=== PATIENT | female | born 1935 | race Caucasian/White ===

== ENCOUNTER → 2017-12-10 | Outpatient (CLI) | payer MEDICARE, OTHER ==
[~2017-12-10] MED LIST: LEVO100T PO; LOSA100T7 PO; METH1TAB21 PO
[2017-12-10 14:59] LABS: BASOPHILS # (AUTO) 0.04 x10^3/uL (0-0.1); BASOPHILS % (AUTO) 1 % (0-1); EOSINOPHILS % (AUTO) 2 % (1-7); HCT (SEDRATE) 41.3 % (34.6-47.8); LYMPHOCYTES # (AUTO) 1.56 x10^3/uL (1-3.4); LYMPHOCYTES % (AUTO) 29 % (22-44); MD NO; MEAN CORPUSCULAR HEMOGLOBIN 31.4 pg (27.0-34.8); MEAN CORPUSCULAR HGB CONC 33.2 g/dL (32.4-35.8); MEAN CORPUSCULAR VOLUME 94.4 fL (80-100); MEAN PLATELET VOLUME 8.4 fL (7.4-10.4); MONOCYTES # (AUTO) 0.43 x10^3/uL (0.2-0.8); MONOCYTES % (AUTO) 8 % (2-9); NEUTROPHILS # (AUTO) 3.34 x10^3/uL (1.8-6.8); NEUTROPHILS % (AUTO) 61 % (42-75); PLATELET COUNT 203 x10^3/uL (130-400); RED BLOOD COUNT 4.36 x10^6/uL (3.82-5.3); RED CELL DISTRIBUTION WIDTH 13.9 % (9.6-15.2)
[2017-12-10 15:06] LABS: MICROSCOPIC AUTO
[2017-12-10 15:07] LABS: CULTURE INDICATED? YES
[2017-12-10 15:12] LABS: ALANINE AMINOTRANSFERASE 13 U/L (12-78); ALBUMIN 3.7 g/dL (3.4-5.0); ANION GAP 5 mmol/L (5-15); CHLORIDE 106 mmol/L (98-107)
[2017-12-10 15:15] LABS: ALKALINE PHOSPHATASE 125 U/L (45-117); BILIRUBIN,TOTAL 0.4 mg/dL (0.2-1.0); CREATININE 1.19 mg/dL (0.55-1.02); TOTAL PROTEIN 7.5 g/dL (6.4-8.2)
[2017-12-10 15:31] LABS: INTERNATIONAL NORMALIZED RATIO 0.98 (0.93-1.1); PROTHROMBIN TIME 10.1 Seconds (9.6-11.5)
== END | disposition home or self-care (01) ==
LOC: STAR 13:47
PROVIDERS: ATTEND Orthopaedic Surgery Orthopaedic Surgery of the Spine
DX: Z01.818 Encounter for other preprocedural examination (principal); M41.86 Other forms of scoliosis, lumbar region; M43.16 Spondylolisthesis, lumbar region; J84.10 Pulmonary fibrosis, unspecified
CPT/HCPCS: 36415; 71046; 80053; 81001; 85025; 85610; 85651; 85730; 87086; 93005

== ENCOUNTER 2017-12-19 12:13 | Inpatient (IN) | payer MEDICARE, OTHER ==
[~2017-12-19] VITALS: Ht 165.1 cm; Wt 96.3 kg
[~2017-12-19 12:13] MED LIST changes: +BACITRACIN 50,000 UNIT ONE; +BUPIVACAINE/PF-EPI 0.5% 1:200K ONE; +PROPOFOL 50 ML ONE; +TRANEXAMIC ACID 100 MG/ML, 10ML ONE; +VANCOMYCIN 1,000 MG ONE
[2017-12-19] MEDS ORDERED: LACTATED RINGERS 1,000 ML IV SCH (12:40)
[2017-12-19 12:44] VITALS: BP 133/74
[2017-12-19] MEDS ORDERED: FENTANYL PF 250 MCG/5ML ONE (12:56)
[2017-12-19] MEDS ORDERED: VANCOMYCIN PMX 1GM/200ML 200 ML IV ONE (13:00)
[2017-12-19] MEDS ORDERED: OxyconTIN ER 10 MG TAB.ER PO ONE (14:30)
[2017-12-19] MEDS ORDERED: ACETAMINOPHEN 500 MG TABLET PO ONE (14:30)
[2017-12-19] MEDS ORDERED: GABAPENTIN 300 MG CAPSULE PO ONE (14:30)
[2017-12-19] MEDS ORDERED: FAMOTIDINE 20 MG TABLET PO ONE (14:30)
[2017-12-19] MEDS ORDERED: PROPOFOL 100 ML ONE (14:35)
[2017-12-19] MEDS ORDERED: CEFAZOLIN 1,000 MG ONE ×2 (14:58)
[2017-12-19] MEDS ORDERED: THROMBIN SPRAY 20,000 UNIT SPRAY TP ONE (15:31)
[2017-12-19] MEDS ORDERED: BUPIVACAINE/PF-EPI 0.5% 1:200K INFIL ONE (15:40)
[2017-12-19] MEDS ORDERED: BACITRACIN 50,000 UNIT IRRIG ONE (15:41)
[2017-12-19] MEDS ORDERED: THROMBIN 20,000 UNIT VIAL TP ONE (15:42)
[2017-12-19] MEDS ORDERED: VANCOMYCIN 1,000 MG IM ONE (15:42)
[2017-12-19] MEDS ORDERED: ONDANSETRON 2MG/ML, 2ML ONE (17:52)
[2017-12-19] MEDS ORDERED: PROMETHAZINE 25 MG/ML, 1ML IV PRN (18:00)
[2017-12-19] MEDS ORDERED: HYDROmorphone 1 MG/ML, 1ML IV PRN (18:00)
[2017-12-19] MEDS ORDERED: hydrALAzine 20 MG/ML, 1ML IV PRN (18:00)
[2017-12-19] MEDS ORDERED: ONDANSETRON 2MG/ML, 2ML IV PRN ×2 (18:00→22:00)
[2017-12-19] MEDS ORDERED: LABETALOL 5MG/ML, 20ML IV PRN ×2 (18:00→22:00)
[2017-12-19] MEDS ORDERED: OXYcodone 5 MG/5 ML ORAL.SOL UDC PO PRN (18:00)
[2017-12-19] MEDS ORDERED: OXYcodone 5 MG/5 ML ORAL.SOL UDC ONE (18:59)
[2017-12-19] MEDS ORDERED: FENTANYL PF 100 MCG/2ML ONE (18:59)
[2017-12-19] MEDS ORDERED: HYDROmorphone 2 MG/ML, 1ML ONE (18:59)
[2017-12-19] MEDS: FENTANYL PF 100 MCG/2ML IV PRN ×3 (19:11→19:29)
[2017-12-19 20:54] VITALS: BP 130/78
[2017-12-19] MEDS ORDERED: ZOLPIDEM 5MG TABLET PO PRN (21:00)
[2017-12-19] MEDS ORDERED: KETOROLAC 30 MG/1 ML IV ONE (22:00)
[2017-12-19] MEDS ORDERED: DIAZEPAM 5 MG TABLET PO PRN (22:00)
[2017-12-19] MEDS ORDERED: DIAZEPAM 5 MG/ML, 2ML IV PRN (22:00)
[2017-12-19] MEDS ORDERED: PROMETHAZINE 25 MG/ML, 1ML IM PRN (22:00)
[2017-12-19] MEDS ORDERED: ACETAMINOPHEN 325 MG TABLET PO PRN (22:00)
[2017-12-19] MEDS ORDERED: BISACODYL 10 MG SUPP PR PRN (22:00)
[2017-12-19] MEDS ORDERED: MAGNESIUM HYDROXIDE 8%, 30ML UDC PO PRN (22:00)
[2017-12-19] MEDS ORDERED: KETOROLAC 30 MG/1 ML IM PRN (22:00)
[2017-12-19] MEDS ORDERED: DIPHENHYDRAMINE 50 MG CAPSULE PO PRN (22:00)
[2017-12-19] MEDS ORDERED: VANCOMYCIN PER PHARMACY MC PRN (22:00)
[2017-12-19] MEDS ORDERED: DIPHENHYDRAMINE 50 MG/ML, 1ML IVPush PRN (22:00)
[2017-12-19] MEDS ORDERED: SODIUM CHLORIDE 0.9% 1,000 ML IV SCH (22:00)
[2017-12-19] MEDS ORDERED: morphine SULFATE 10 MG/ML, 1ML IV PRN (22:00)
[2017-12-19] MEDS ORDERED: DIPHENHYDRAMINE 50 MG/ML, 1ML IM PRN (22:00)
[2017-12-19] MEDS ORDERED: LORazepam 1MG TABLET PO PRN (22:00)
[2017-12-19] MEDS ORDERED: PHARMACOKINETIC CONSULTATION MC ONE (22:30)
[2017-12-19] MEDS ORDERED: PHARMACOKINETIC MONITORING MC PRN (22:30)
[2017-12-19] MEDS ORDERED: VANCOMYCIN 1,400 MG in SODIUM CHLORIDE 0.9% 250 ML IV SCH (22:30)
[2017-12-19] MEDS: D5%-0.9% NACL+KCL 20MEQ 1,000 ML IV SCH (23:40)
[2017-12-20 00:38] VITALS: BP 130/71
[2017-12-20] MEDS: DEXAMETHASONE 4 MG/ML, 1ML IVPush PRN ×2 (00:51→20:54)
[2017-12-20] MEDS ORDERED: KETOROLAC 30 MG/1 ML IV PRN ×2 (04:11→10:11)
[2017-12-20 05:48] LABS: BASOPHILS % (AUTO) 0 % (0-1); EOSINOPHILS % (AUTO) 0 % (1-7); LYMPHOCYTES # (AUTO) 0.59 x10^3/uL (1-3.4); LYMPHOCYTES % (AUTO) 6 % (22-44); MD NO; MEAN CORPUSCULAR HEMOGLOBIN 32.2 pg (27.0-34.8); MEAN CORPUSCULAR HGB CONC 33.8 g/dL (32.4-35.8); MEAN CORPUSCULAR VOLUME 95.2 fL (80-100); MEAN PLATELET VOLUME 8.8 fL (7.4-10.4); MONOCYTES # (AUTO) 0.35 x10^3/uL (0.2-0.8); MONOCYTES % (AUTO) 4 % (2-9); NEUTROPHILS # (AUTO) 8.67 x10^3/uL (1.8-6.8); NEUTROPHILS % (AUTO) 90 % (42-75); PLATELET COUNT 180 x10^3/uL (130-400); RED BLOOD COUNT 3.63 x10^6/uL (3.82-5.3); RED CELL DISTRIBUTION WIDTH 13.5 % (9.6-15.2)
[2017-12-20 05:49] LABS: CREATININE 0.99 mg/dL (0.55-1.02)
[2017-12-20 07:06] VITALS: BP 105/60
[2017-12-20] MEDS: LEVOTHYROXINE 100 MCG TABLET PO SCH (07:33)
[2017-12-20] MEDS: OXYcodone IR 5MG TABLET PO PRN ×3 (07:34→22:55)
[2017-12-20] MEDS: D5%-0.9% NACL+KCL 20MEQ 1,000 ML IV SCH ×2 (08:00→17:52)
[2017-12-20] MEDS: LOSARTAN 50MG TABLET PO SCH (09:00)
[2017-12-20] MEDS: METHENAMINE HIPPURATE 1 GM TABLET PO SCH ×2 (10:04→20:54)
[2017-12-20] MEDS: ASCORBIC ACID 500 MG TABLET PO SCH ×2 (10:04→20:54)
[2017-12-20] MEDS: SENNA/DOCUSATE TABLET PO SCH (10:04)
[2017-12-20 13:26] VITALS: BP 106/67
[2017-12-20 19:00] VITALS: BP 136/74
[2017-12-20] MEDS ORDERED: VANCOMYCIN 1,400 MG in SODIUM CHLORIDE 0.9% 250 ML IV SCH (23:00)
[2017-12-21 01:50] VITALS: BP 125/68
[2017-12-21] MEDS: D5%-0.9% NACL+KCL 20MEQ 1,000 ML IV SCH ×2 (04:00→14:00)
[2017-12-21 05:34] LABS: BASOPHILS # (AUTO) 0.02 x10^3/uL (0-0.1); BASOPHILS % (AUTO) 0 % (0-1); EOSINOPHILS % (AUTO) 0 % (1-7); LYMPHOCYTES # (AUTO) 0.86 x10^3/uL (1-3.4); LYMPHOCYTES % (AUTO) 9 % (22-44); MD NO; MEAN CORPUSCULAR HEMOGLOBIN 32.6 pg (27.0-34.8); MEAN CORPUSCULAR VOLUME 95.8 fL (80-100); MEAN PLATELET VOLUME 8.4 fL (7.4-10.4); MONOCYTES # (AUTO) 0.77 x10^3/uL (0.2-0.8); MONOCYTES % (AUTO) 8 % (2-9); NEUTROPHILS # (AUTO) 8.47 x10^3/uL (1.8-6.8); NEUTROPHILS % (AUTO) 84 % (42-75); PLATELET COUNT 169 x10^3/uL (130-400); RED BLOOD COUNT 3.49 x10^6/uL (3.82-5.3); RED CELL DISTRIBUTION WIDTH 14.1 % (9.6-15.2)
[2017-12-21] MEDS: OXYcodone IR 5MG TABLET PO PRN ×6 (05:53→22:08)
[2017-12-21] MEDS: LEVOTHYROXINE 100 MCG TABLET PO SCH (05:53)
[2017-12-21 07:20] VITALS: BP 91/49
[2017-12-21] MEDS: ASCORBIC ACID 500 MG TABLET PO SCH ×2 (08:38→20:39)
[2017-12-21] MEDS: SENNA/DOCUSATE TABLET PO SCH (08:38)
[2017-12-21] MEDS: METHENAMINE HIPPURATE 1 GM TABLET PO SCH ×2 (08:38→20:39)
[2017-12-21] MEDS: LOSARTAN 50MG TABLET PO SCH (08:40)
[2017-12-21 08:43] VITALS: BP 100/63
[2017-12-21 12:59] VITALS: BP 112/41
[2017-12-21 20:16] VITALS: BP 114/70
[2017-12-22 02:24] VITALS: BP 125/71
[2017-12-22] MEDS: OXYcodone IR 5MG TABLET PO PRN ×6 (04:23→21:28)
[2017-12-22 05:21] LABS: BASOPHILS # (AUTO) 0.07 x10^3/uL (0-0.1); BASOPHILS % (AUTO) 1 % (0-1); EOSINOPHILS # (AUTO) 0.09 x10^3/uL (0-0.4); EOSINOPHILS % (AUTO) 1 % (1-7); LYMPHOCYTES # (AUTO) 1.76 x10^3/uL (1-3.4); LYMPHOCYTES % (AUTO) 19 % (22-44); MD NO; MEAN CORPUSCULAR HEMOGLOBIN 32.6 pg (27.0-34.8); MEAN CORPUSCULAR HGB CONC 34.2 g/dL (32.4-35.8); MEAN CORPUSCULAR VOLUME 95.4 fL (80-100); MEAN PLATELET VOLUME 8.7 fL (7.4-10.4); MONOCYTES # (AUTO) 1.02 x10^3/uL (0.2-0.8); MONOCYTES % (AUTO) 11 % (2-9); NEUTROPHILS # (AUTO) 6.21 x10^3/uL (1.8-6.8); NEUTROPHILS % (AUTO) 68 % (42-75); PLATELET COUNT 159 x10^3/uL (130-400)
[2017-12-22] MEDS: LEVOTHYROXINE 100 MCG TABLET PO SCH (06:01)
[2017-12-22 06:44] VITALS: BP 91/54
[2017-12-22] MEDS ORDERED: ACETAMINOPHEN 500 MG TABLET ONE (08:11)
[2017-12-22 08:27] VITALS: BP 122/70
[2017-12-22] MEDS: SENNA/DOCUSATE TABLET PO SCH (08:29)
[2017-12-22] MEDS: LOSARTAN 50MG TABLET PO SCH (08:29)
[2017-12-22] MEDS: METHENAMINE HIPPURATE 1 GM TABLET PO SCH ×2 (08:29→21:28)
[2017-12-22] MEDS: ASCORBIC ACID 500 MG TABLET PO SCH ×2 (08:30→21:33)
[2017-12-22] MEDS: DEXAMETHASONE 4 MG/ML, 1ML IVPush PRN (08:49)
[2017-12-22] MEDS ORDERED: OXYcodone 5 MG/5 ML ORAL.SOL UDC ONE (08:53)
[2017-12-22 12:11] VITALS: BP 98/60
[2017-12-22] MEDS: POLYETHYLENE GLYCOL 17 GM PACKET PO PRN (17:26)
[2017-12-22 20:19] VITALS: BP 101/63
[2017-12-23] MEDS: OXYcodone IR 5MG TABLET PO PRN ×3 (02:54→15:43)
[2017-12-23 04:30] VITALS: BP 112/67
[2017-12-23 04:55] LABS: BASOPHILS # (AUTO) 0.01 x10^3/uL (0-0.1); BASOPHILS % (AUTO) 0 % (0-1); EOSINOPHILS # (AUTO) 0.04 x10^3/uL (0-0.4); EOSINOPHILS % (AUTO) 1 % (1-7); LYMPHOCYTES # (AUTO) 1.09 x10^3/uL (1-3.4); LYMPHOCYTES % (AUTO) 13 % (22-44); MD NO; MEAN CORPUSCULAR HEMOGLOBIN 32.5 pg (27.0-34.8); MEAN CORPUSCULAR HGB CONC 34.1 g/dL (32.4-35.8); MEAN CORPUSCULAR VOLUME 95.4 fL (80-100); MEAN PLATELET VOLUME 8.5 fL (7.4-10.4); MONOCYTES # (AUTO) 0.76 x10^3/uL (0.2-0.8); MONOCYTES % (AUTO) 9 % (2-9); NEUTROPHILS # (AUTO) 6.81 x10^3/uL (1.8-6.8); NEUTROPHILS % (AUTO) 78 % (42-75); PLATELET COUNT 179 x10^3/uL (130-400); RED BLOOD COUNT 3.21 x10^6/uL (3.82-5.3); RED CELL DISTRIBUTION WIDTH 13.8 % (9.6-15.2)
[2017-12-23] MEDS: LEVOTHYROXINE 100 MCG TABLET PO SCH (05:06)
[2017-12-23 06:28] VITALS: BP 135/77
[2017-12-23] MEDS: SENNA/DOCUSATE TABLET PO SCH (10:29)
[2017-12-23] MEDS: POLYETHYLENE GLYCOL 17 GM PACKET PO PRN (10:29)
[2017-12-23] MEDS: ASCORBIC ACID 500 MG TABLET PO SCH (10:30)
[2017-12-23] MEDS: LOSARTAN 50MG TABLET PO SCH (10:30)
[2017-12-23] MEDS: METHENAMINE HIPPURATE 1 GM TABLET PO SCH (10:30)
[2017-12-23] MEDS ORDERED: MAGNESIUM CITRATE 300ML ORAL SOL ONE (12:43)
[2017-12-23 12:53] VITALS: BP 119/69
[2017-12-23] MEDS ORDERED: MAGNESIUM CITRATE 300ML ORAL SOL PO PRN (13:00)
[2017-12-23] MEDS ORDERED: OXYC5CAP2 PO (17:07)
[2017-12-23] MEDS ORDERED: CEPH-368 PO (17:08)
[2017-12-23] MEDS ORDERED: METH500T97 PO (17:08)
== END 2017-12-23 17:54 | disposition home health service (06) | DRG 460 ==
LOC: ORIP 12:13 → 4NOR 20:00
PROVIDERS: ADMIT Orthopaedic Surgery Orthopaedic Surgery of the Spine; ATTEND Orthopaedic Surgery Orthopaedic Surgery of the Spine
PROC: 0SG1071 Fusion of 2 or more Lumbar Vertebral Joints with Autologous Tissue Substitute, Posterior Approach, Posterior Column, Open Approach (ICD-10-PCS; 2017-12-19)
PROC: 0SP004Z Removal of Internal Fixation Device from Lumbar Vertebral Joint, Open Approach (ICD-10-PCS; 2017-12-19)
PROC: 07DR3ZZ Extraction of Iliac Bone Marrow, Percutaneous Approach (ICD-10-PCS; 2017-12-19)
PROC: 4A11X4G Monitoring of Peripheral Nervous Electrical Activity, Intraoperative, External Approach (ICD-10-PCS; 2017-12-19)
PROC: 0QU00JZ Supplement Lumbar Vertebra with Synthetic Substitute, Open Approach (ICD-10-PCS; 2017-12-19)
PROC: 0SG3071 Fusion of Lumbosacral Joint with Autologous Tissue Substitute, Posterior Approach, Posterior Column, Open Approach (ICD-10-PCS; principal; 2017-12-19 14:30)
DX: T84.84XA Pain due to internal orthopedic prosthetic devices, implants and grafts, initial encounter (principal); M43.16 Spondylolisthesis, lumbar region; M47.9 Spondylosis, unspecified; I10 Essential (primary) hypertension; E03.9 Hypothyroidism, unspecified; M51.36 Other intervertebral disc degeneration, lumbar region; M41.86 Other forms of scoliosis, lumbar region; Y83.1 Surgical operation with implant of artificial internal device as the cause of abnormal reaction of the patient, or of later complication, without mention of misadventure at the time of the procedure; K59.00 Constipation, unspecified; Z90.49 Acquired absence of other specified parts of digestive tract; Z90.710 Acquired absence of both cervix and uterus; Z98.1 Arthrodesis status
CPT/HCPCS: 36415; 72100; 82565; 84520; 85025; 86850; 86900; C1713; G0378; J0690; J1100; J1885; J2270; J2405; J2704; J3010; J3370; C1760; C1762; C1763; C9362; J3480; J7050

== ENCOUNTER → 2018-05-18 | Outpatient (CLI) | payer MEDICARE, OTHER ==
[~2018-05-18] MED LIST changes: +AREDS II PO; +ASCO-96 PO; -BACITRACIN 50,000 UNIT ONE; -BUPIVACAINE/PF-EPI 0.5% 1:200K ONE; +CEPH-368 PO; +CRAN200C2 PO; +FEXO180T72 PO; +FLUT16SP NS; +LOSA100T14 PO; -LOSA100T7 PO; +METH500T97 PO; +MIRA25TA PO; +OXYC5CAP2 PO; -PROPOFOL 50 ML ONE; -TRANEXAMIC ACID 100 MG/ML, 10ML ONE; -VANCOMYCIN 1,000 MG ONE; +[UNRECOGNIZED DRUG - OTHER] PO; +[UNRECOGNIZED DRUG - OTHER] PO; +[UNRECOGNIZED DRUG - REMARK] PO
[2018-05-18 11:29] LABS: MICROSCOPIC AUTO
[2018-05-18 11:36] LABS: CULTURE INDICATED? YES
[2018-05-18 11:42] LABS: BASOPHILS # (AUTO) 0.03 x10^3/uL (0-0.1); BASOPHILS % (AUTO) 1 % (0-1); EOSINOPHILS # (AUTO) 0.03 x10^3/uL (0-0.4); EOSINOPHILS % (AUTO) 0 % (1-7); LYMPHOCYTES # (AUTO) 1.41 x10^3/uL (1-3.4); LYMPHOCYTES % (AUTO) 20 % (22-44); MD NO; MEAN CORPUSCULAR HEMOGLOBIN 29.8 pg (27.0-34.8); MEAN CORPUSCULAR HGB CONC 33.5 g/dL (32.4-35.8); MEAN CORPUSCULAR VOLUME 89.1 fL (80-100); MEAN PLATELET VOLUME 8.6 fL (7.4-10.4); MONOCYTES # (AUTO) 0.56 x10^3/uL (0.2-0.8); MONOCYTES % (AUTO) 8 % (2-9); NEUTROPHILS # (AUTO) 5.08 x10^3/uL (1.8-6.8); NEUTROPHILS % (AUTO) 72 % (42-75); PLATELET COUNT 200 x10^3/uL (130-400); RED BLOOD COUNT 4.73 x10^6/uL (3.82-5.3); RED CELL DISTRIBUTION WIDTH 15.2 % (9.6-15.2)
[2018-05-18 11:46] LABS: INTERNATIONAL NORMALIZED RATIO 0.96 (0.93-1.1); PROTHROMBIN TIME 10.1 Seconds (9.6-11.5)
[2018-05-18 12:19] LABS: HCT (SEDRATE) 30.6 % (34.6-47.8)
[2018-05-18 12:28] LABS: ALANINE AMINOTRANSFERASE 18 U/L (12-78); ANION GAP 8 mmol/L (5-15); CALCIUM 9.1 mg/dL (8.5-10.1); CHLORIDE 112 mmol/L (98-107); CREATININE 1.03 mg/dL (0.55-1.02)
[2018-05-18 12:31] LABS: ALKALINE PHOSPHATASE 110 U/L (45-117); BILIRUBIN,TOTAL 0.6 mg/dL (0.2-1.0); TOTAL PROTEIN 7.4 g/dL (6.4-8.2)
== END | disposition home or self-care (01) ==
LOC: STAR 10:30
PROVIDERS: ATTEND Orthopaedic Surgery Orthopaedic Surgery of the Spine
DX: Z01.818 Encounter for other preprocedural examination (principal); M48.02 Spinal stenosis, cervical region; M47.12 Other spondylosis with myelopathy, cervical region; G90.2 Horner's syndrome
CPT/HCPCS: 36415; 80053; 81001; 85025; 85610; 85651; 85730; 87086; 93005

== ENCOUNTER 2018-05-26 05:39 | Inpatient (IN) | payer MEDICARE, OTHER ==
[~2018-05-26] VITALS: Ht 162.6 cm; Wt 89.8 kg
[2018-05-26] MEDS ORDERED: LACTATED RINGERS 1,000 ML IV SCH (06:04)
[2018-05-26] MEDS ORDERED: VANCOMYCIN PMX 1GM/200ML 200 ML IV STA (06:12)
[2018-05-26] MEDS ORDERED: TRANEXAMIC ACID 100 MG/ML, 10ML ONE (06:56)
[2018-05-26] MEDS ORDERED: BUPIVACAINE/PF-EPI 0.5% 1:200K ONE (06:56)
[2018-05-26] MEDS ORDERED: BACITRACIN 50,000 UNIT ONE (06:56)
[2018-05-26] MEDS ORDERED: THROMBIN 20,000 UNIT VIAL TP ONE (06:56)
[2018-05-26] MEDS ORDERED: MIDAZOLAM 1 MG/ML, 2ML ONE (07:26)
[2018-05-26] MEDS ORDERED: FENTANYL PF 250 MCG/5ML ONE (07:27)
[2018-05-26] MEDS ORDERED: ALBUTEROL SULFATE 2.5 MG/3 ML NPPB PRN (10:00)
[2018-05-26] MEDS ORDERED: FENTANYL PF 100 MCG/2ML IV PRN (10:00)
[2018-05-26] MEDS ORDERED: hydrALAzine 20 MG/ML, 1ML IV PRN (10:00)
[2018-05-26] MEDS ORDERED: DIAZEPAM 5 MG/ML, 2ML IVPush PRN (10:00)
[2018-05-26] MEDS ORDERED: OXYcodone 5 MG/5 ML ORAL.SOL UDC PO PRN (10:00)
[2018-05-26] MEDS ORDERED: LABETALOL 5MG/ML, 20ML IV PRN (10:00)
[2018-05-26] MEDS ORDERED: ONDANSETRON ODT 8 MG PO PRN (10:00)
[2018-05-26] MEDS ORDERED: MORPHINE SULFATE 4 MG/ML, 1ML IVPush PRN (10:00)
[2018-05-26] MEDS ORDERED: METHOCARBAMOL 1,000 MG in DEXTROSE 5% 100 ML IV ONE (10:00)
[2018-05-26] MEDS ORDERED: ONDANSETRON 2MG/ML, 2ML IV PRN (10:00)
[2018-05-26] MEDS ORDERED: PROMETHAZINE 12.5 MG SUPP PR PRN (10:00)
[2018-05-26] MEDS ORDERED: HALOPERIDOL 5 MG/ML IV PRN (10:00)
[2018-05-26] MEDS ORDERED: ACETAMINOPHEN 325 MG TABLET PO PRN (10:00)
[2018-05-26] MEDS ORDERED: MIDAZOLAM 1 MG/ML, 2ML IV PRN (10:00)
[2018-05-26] MEDS ORDERED: PROMETHAZINE 25 MG/ML, 1ML IV PRN (10:00)
[2018-05-26] MEDS ORDERED: MEPERIDINE/PF 25MG/0.5ML IVPush PRN (10:00)
[2018-05-26] MEDS ORDERED: EPHEDRINE 50 MG/ML, 1ML IVPush PRN (10:00)
[2018-05-26] MEDS ORDERED: KETOROLAC 30 MG/1 ML ONE (10:12)
[2018-05-26] MEDS ORDERED: OXYcodone 5 MG/5 ML ORAL.SOL UDC ONE (10:13)
[2018-05-26] MEDS ORDERED: KETOROLAC 30 MG/1 ML IVPush ONE ×2 (10:30→11:00)
[2018-05-26] MEDS ORDERED: HYDROmorphone 1 MG/ML, 1ML INJ ONE (10:36)
[2018-05-26] MEDS: HYDROmorphone 2 MG/ML, 1ML IVPush PRN ×2 (10:37→11:04)
[2018-05-26] MEDS ORDERED: hydrALAzine 20 MG/ML, 1ML ONE (10:45)
[2018-05-26] MEDS: SODIUM CHLORIDE FLUSH 10ML SYR IVF SCH ×2 (11:30→21:00)
[2018-05-26] MEDS ORDERED: PHARMACY MAY ADJ FOR RENAL FX MC PRN (11:30)
[2018-05-26 13:31] VITALS: BP 138/77
[2018-05-26] MEDS ORDERED: FLUTICASONE NASAL SPRAY 16GM NAS PRN (14:00)
[2018-05-26] MEDS ORDERED: MAGNESIUM HYDROXIDE 8%, 30ML UDC PO PRN (14:00)
[2018-05-26] MEDS ORDERED: ACETAMINOPHEN 500 MG TABLET PO PRN (14:00)
[2018-05-26] MEDS ORDERED: OXYcodone IR 5MG TABLET PO PRN (14:00)
[2018-05-26] MEDS ORDERED: morphine SULFATE 10 MG/ML, 1ML IV PRN (14:00)
[2018-05-26] MEDS ORDERED: ACETAMINOPHEN 325 MG SUPP PR PRN (14:00)
[2018-05-26] MEDS ORDERED: DIPHENHYDRAMINE 50 MG CAPSULE PO PRN (14:00)
[2018-05-26] MEDS ORDERED: PROMETHAZINE 25 MG/ML, 1ML IM PRN (14:00)
[2018-05-26] MEDS ORDERED: SODIUM CHLORIDE 0.9% 1,000ML IV PRN (14:00)
[2018-05-26] MEDS ORDERED: LORazepam 1MG TABLET PO PRN (14:00)
[2018-05-26] MEDS ORDERED: BISACODYL 10 MG SUPP PR PRN (14:00)
[2018-05-26] MEDS ORDERED: DIPHENHYDRAMINE 50 MG/ML, 1ML IM PRN (14:00)
[2018-05-26] MEDS ORDERED: DIPHENHYDRAMINE 50 MG/ML, 1ML IVPush PRN (14:00)
[2018-05-26] MEDS ORDERED: SUCCINYLCHOLINE 20 MG/ML, 10ML ONE (15:48)
[2018-05-26] MEDS ORDERED: PROPOFOL 10 MG/ML, 50ML ONE (15:48)
[2018-05-26] MEDS ORDERED: ONDANSETRON 2MG/ML, 2ML ONE (15:48)
[2018-05-26] MEDS ORDERED: DEXAMETHASONE 4 MG/ML, 1ML ONE (15:48)
[2018-05-26] MEDS ORDERED: ROCURONIUM 10MG/ML,5ML ONE (15:48)
[2018-05-26] MEDS ORDERED: CEFAZOLIN 1,000 MG ONE (15:48)
[2018-05-26] MEDS: D5%-0.9% NACL+KCL 20MEQ 1,000 ML IV SCH (16:36)
[2018-05-26] MEDS: CEFAZOLIN PMX 1GM/50ML 50 ML IVPB SCH (16:36)
[2018-05-26] MEDS: DEXAMETHASONE 4 MG/ML, 1ML IV PRN (16:59)
[2018-05-26] MEDS: OXYcodone IR 5MG TABLET PO PRN ×2 (17:01→20:27)
[2018-05-26] MEDS: KETOROLAC 30 MG/1 ML IV PRN (17:01)
[2018-05-26] MEDS: ONDANSETRON 2MG/ML, 2ML IV PRN ×2 (17:08→23:53)
[2018-05-26] MEDS: METHOCARBAMOL 750 MG in DEXTROSE 5% 100 ML IV SCH (18:50)
[2018-05-26 19:40] VITALS: BP 177/84
[2018-05-26] MEDS: METHENAMINE HIPPURATE 1 GM TABLET PO SCH (20:27)
[2018-05-26] MEDS ORDERED: ZOLPIDEM 5MG TABLET PO PRN (21:00)
[2018-05-27] VITALS (10 sets, daily range): BP systolic 128–180; BP diastolic 74–100
[2018-05-27] MEDS: CEFAZOLIN PMX 1GM/50ML 50 ML IVPB SCH (00:14)
[2018-05-27] MEDS: LABETALOL 5MG/ML, 20ML IV PRN ×2 (01:02→01:13)
[2018-05-27] MEDS: OXYcodone IR 5MG TABLET PO PRN ×5 (02:17→20:42)
[2018-05-27] MEDS: METHOCARBAMOL 750 MG in DEXTROSE 5% 100 ML IV SCH ×3 (02:22→18:26)
[2018-05-27] MEDS: LEVOTHYROXINE 100 MCG TABLET PO SCH (05:17)
[2018-05-27] MEDS: D5%-0.9% NACL+KCL 20MEQ 1,000 ML IV SCH ×2 (06:04→19:30)
[2018-05-27] MEDS: SODIUM CHLORIDE FLUSH 10ML SYR IVF SCH ×2 (07:27→20:43)
[2018-05-27] MEDS: ASCORBIC ACID 500 MG TABLET PO SCH (09:00)
[2018-05-27] MEDS: LORATADINE 10 MG TABLET PO SCH (09:00)
[2018-05-27] MEDS: SENNA/DOCUSATE TABLET PO SCH (09:00)
[2018-05-27] MEDS: LOSARTAN 50MG TABLET PO SCH (09:00)
[2018-05-27] MEDS: METHENAMINE HIPPURATE 1 GM TABLET PO SCH ×2 (09:00→20:42)
[2018-05-27] MEDS: DEXAMETHASONE 4 MG/ML, 1ML IV PRN (13:31)
[2018-05-27] MEDS: KETOROLAC 30 MG/1 ML IV PRN (17:33)
[2018-05-28] MEDS: OXYcodone IR 5MG TABLET PO PRN ×5 (00:09→13:22)
[2018-05-28 01:42] VITALS: BP 149/80
[2018-05-28] MEDS: KETOROLAC 30 MG/1 ML IV PRN (02:57)
[2018-05-28] MEDS: METHOCARBAMOL 750 MG in DEXTROSE 5% 100 ML IV SCH ×2 (02:57→10:30)
[2018-05-28] MEDS: D5%-0.9% NACL+KCL 20MEQ 1,000 ML IV SCH ×2 (05:30→11:40)
[2018-05-28] MEDS: LEVOTHYROXINE 100 MCG TABLET PO SCH (05:48)
[2018-05-28 07:29] VITALS: BP 140/78
[2018-05-28] MEDS: LOSARTAN 50MG TABLET PO SCH (09:21)
[2018-05-28] MEDS: LORATADINE 10 MG TABLET PO SCH (09:21)
[2018-05-28] MEDS: METHENAMINE HIPPURATE 1 GM TABLET PO SCH (09:21)
[2018-05-28] MEDS: SODIUM CHLORIDE FLUSH 10ML SYR IVF SCH (09:22)
[2018-05-28] MEDS: ASCORBIC ACID 500 MG TABLET PO SCH (09:22)
[2018-05-28] MEDS: SENNA/DOCUSATE TABLET PO SCH (09:22)
[2018-05-28] MEDS: DEXAMETHASONE 4 MG/ML, 1ML IV PRN (11:39)
[2018-05-28] MEDS ORDERED: METHOCARBAMOL 750 MG TABLET PO SCH (12:00)
[2018-05-28 12:46] VITALS: BP 130/81
[2018-05-28] MEDS ORDERED: OXYC20TA2 PO (14:33)
== END 2018-05-28 14:44 | disposition home or self-care (01) | DRG 472 ==
LOC: ORIP 05:39 → 4NOR 11:20 → DCLOUNGE 05-28 14:31
PROVIDERS: ADMIT Orthopaedic Surgery Orthopaedic Surgery of the Spine; ATTEND Orthopaedic Surgery Orthopaedic Surgery of the Spine
PROC: 0RG10A0 Fusion of Cervical Vertebral Joint with Interbody Fusion Device, Anterior Approach, Anterior Column, Open Approach (ICD-10-PCS; 2018-05-26)
PROC: 01N10ZZ Release Cervical Nerve, Open Approach (ICD-10-PCS; 2018-05-26)
PROC: 4A11X4G Monitoring of Peripheral Nervous Electrical Activity, Intraoperative, External Approach (ICD-10-PCS; 2018-05-26)
PROC: 0RB30ZZ Excision of Cervical Vertebral Disc, Open Approach (ICD-10-PCS; principal; 2018-05-26 07:30)
DX: M48.02 Spinal stenosis, cervical region (principal); M50.021 Cervical disc disorder at C4-C5 level with myelopathy; I10 Essential (primary) hypertension; M50.121 Cervical disc disorder at C4-C5 level with radiculopathy; E03.9 Hypothyroidism, unspecified; Z88.0 Allergy status to penicillin; Z88.2 Allergy status to sulfonamides; Z88.8 Allergy status to other drugs, medicaments and biological substances
CPT/HCPCS: 36415; 72040; 86850; 86900; C1713; G0378; J0690; J1100; J1170; J1885; J2250; J2405; J2550; J2704; J3010; J3370; C1762; J0330; J0360; J1200; J2270; J2800; J3480; J7120

== ENCOUNTER → 2019-04-15 | Outpatient (CLI) | payer MEDICARE, OTHER ==
[~2019-04-15] MED LIST changes: -FLUT16SP NS; +FLUT16SP24 NS; +LOSA1TAB25 PO; +NITR100C6 PO; +OXYC20TA2 PO; +TOLT4CAP12 PO; +TURM500C4 PO; +VIT1CAPS42 PO
[2019-04-15 14:10] LABS: BASOPHILS # (AUTO) 0.03 x10^3/uL (0-0.1); BASOPHILS % (AUTO) 1 % (0-1); EOSINOPHILS # (AUTO) 0.11 x10^3/uL (0-0.4); EOSINOPHILS % (AUTO) 2 % (1-7); LYMPHOCYTES # (AUTO) 1.56 x10^3/uL (1-3.4); LYMPHOCYTES % (AUTO) 29 % (22-44); MD NO; MEAN CORPUSCULAR HEMOGLOBIN 31.9 pg (27.0-34.8); MEAN CORPUSCULAR HGB CONC 33.5 g/dL (32.4-35.8); MEAN CORPUSCULAR VOLUME 95.2 fL (80-100); MEAN PLATELET VOLUME 8.1 fL (7.4-10.4); MONOCYTES % (AUTO) 9 % (2-9); NEUTROPHILS # (AUTO) 3.21 x10^3/uL (1.8-6.8); NEUTROPHILS % (AUTO) 59 % (42-75); PLATELET COUNT 200 x10^3/uL (130-400); RED BLOOD COUNT 4.35 x10^6/uL (3.82-5.3)
[2019-04-15 14:11] LABS: HCT (SEDRATE) 41.4 % (34.6-47.8)
[2019-04-15 14:15] LABS: INTERNATIONAL NORMALIZED RATIO 0.91 (0.93-1.1); PROTHROMBIN TIME 9.6 Seconds (9.6-11.5)
[2019-04-15 14:18] LABS: ALANINE AMINOTRANSFERASE 11 U/L (12-78); ALBUMIN 3.6 g/dL (3.4-5.0); ANION GAP 4 mmol/L (5-15); CHLORIDE 109 mmol/L (98-107); CREATININE 0.98 mg/dL (0.55-1.02)
[2019-04-15 14:19] LABS: ALKALINE PHOSPHATASE 123 U/L (45-117); BILIRUBIN,TOTAL 0.4 mg/dL (0.2-1.0)
[2019-04-15 14:20] LABS: CULTURE INDICATED? YES; MICROSCOPIC INDICATED
== END | disposition home or self-care (01) ==
LOC: STAR 12:47
PROVIDERS: ATTEND Orthopaedic Surgery Orthopaedic Surgery of the Spine
DX: Z01.818 Encounter for other preprocedural examination (principal); M43.28 Fusion of spine, sacral and sacrococcygeal region
CPT/HCPCS: 36415; 71046; 80053; 81001; 83036; 85025; 85610; 85651; 85730; 87086; 93005

== ENCOUNTER 2019-04-23 06:24 | Day surgery (SDC) | payer MEDICARE, OTHER ==
[~2019-04-23] VITALS: Ht 162.6 cm; Wt 93.1 kg
[2019-04-23] MEDS ORDERED: VANCOMYCIN PMX 1GM/200ML 200 ML IV STA (06:37)
[2019-04-23] MEDS ORDERED: LACTATED RINGERS 1,000 ML IV SCH (07:01)
[2019-04-23 07:07] VITALS: BP 134/81
[2019-04-23] MEDS ORDERED: FENTANYL PF 100 MCG/2ML ONE (07:19)
[2019-04-23] MEDS ORDERED: ONDANSETRON 2MG/ML, 2ML IV PRN (07:30)
[2019-04-23] MEDS ORDERED: ACETAMINOPHEN 325 MG TABLET PO PRN ×2 (07:30→08:00)
[2019-04-23] MEDS ORDERED: FENTANYL PF 100 MCG/2ML IV PRN (07:30)
[2019-04-23] MEDS ORDERED: PROMETHAZINE 25 MG/ML, 1ML IV PRN (07:30)
[2019-04-23] MEDS ORDERED: MORPHINE SULFATE 4 MG/ML, 1ML IVPush PRN (07:30)
[2019-04-23] MEDS ORDERED: OXYcodone 5 MG/5 ML ORAL.SOL UDC PO PRN ×2 (07:30→08:00)
[2019-04-23] MEDS ORDERED: ROCURONIUM 10MG/ML,5ML ONE ×3 (07:55→09:04)
[2019-04-23] MEDS ORDERED: PROPOFOL 50 ML ONE ×2 (07:56)
[2019-04-23] MEDS ORDERED: morphine SULFATE 10 MG/ML, 1ML IVPush PRN (08:00)
[2019-04-23] MEDS ORDERED: KETOROLAC 30 MG/1 ML IVPush SCH (08:00)
[2019-04-23] MEDS ORDERED: ONDANSETRON 2MG/ML, 2ML IVPush PRN (08:00)
[2019-04-23] MEDS ORDERED: PROMETHAZINE 25 MG/ML, 1ML IM PRN (08:00)
[2019-04-23] MEDS ORDERED: BUPIVACAINE/PF 0.5% ONE (08:06)
[2019-04-23] MEDS ORDERED: BACITRACIN 50,000 UNIT ONE (08:07)
[2019-04-23] MEDS ORDERED: EPINEPHRINE 1 MG/ML, 1ML ONE (08:07)
[2019-04-23] MEDS ORDERED: VANCOMYCIN 500 MG ONE (08:12)
[2019-04-23] MEDS ORDERED: DEXAMETHASONE 4 MG/ML, 1ML ONE (09:04)
[2019-04-23] MEDS ORDERED: PROPOFOL 10 MG/ML, 20ML ONE (09:04)
[2019-04-23] MEDS ORDERED: ONDANSETRON 2MG/ML, 2ML ONE (09:04)
[2019-04-23] MEDS ORDERED: SUGAMMADEX 200 MG/2 ML IVPush ONE (09:05)
[2019-04-23] MEDS ORDERED: BUPIVACAINE/PF-EPI 0.5% 1:200K INFIL ONE (09:38)
[2019-04-23] MEDS ORDERED: ACETAMINOPHEN 650 MG/20.3 ML UDC ONE (10:42)
[2019-04-23] MEDS ORDERED: OXYcodone 5 MG/5 ML ORAL.SOL UDC ONE (10:43)
== END 2019-04-23 16:10 | disposition home or self-care (01) ==
LOC: OUT 06:24 → 4NE 14:36 → OUT 16:10
PROVIDERS: ATTEND Orthopaedic Surgery Orthopaedic Surgery of the Spine
DX: M46.1 Sacroiliitis, not elsewhere classified (principal); M47.898 Other spondylosis, sacral and sacrococcygeal region; I10 Essential (primary) hypertension; Z89.612 Acquired absence of left leg above knee; Z89.611 Acquired absence of right leg above knee; Z88.0 Allergy status to penicillin; Z88.8 Allergy status to other drugs, medicaments and biological substances
CPT/HCPCS: 27279; 72202; 95938; 95941; C1713; C1762; J0171; J1100; J1885; J2405; J2704; J3010; J3370; J7120; 76000; G0378